=== PATIENT | male | born 1990 | race American Indian/Alaskan Native ===

== ENCOUNTER 2017-09-06 13:06 | Emergency (ER) | payer OTHER ==
[2017-09-06 13:19] VITALS: BP 117/87
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
== END 2017-09-06 16:29 | disposition home or self-care (01) ==
LOC: ED 13:06
DX: T85.698A Other mechanical complication of other specified internal prosthetic devices, implants and grafts, initial encounter (principal); Y83.8 Other surgical procedures as the cause of abnormal reaction of the patient, or of later complication, without mention of misadventure at the time of the procedure; Y92.89 Other specified places as the place of occurrence of the external cause
CPT/HCPCS: 99283

== ENCOUNTER 2018-01-26 09:08 | Outpatient (CLI) | payer OTHER ==
[2018-01-26 09:52] LABS: Blood Urea Nitrogen 9 mg/dL (9-20)
--- NOTE | 2018-01-26 12:03 | Cat Scan Report ---
CT scan of abdomen with IV contrast: History: Cramping and swelling. Findings: Left basilar scarring or discoid atelectasis. No pleural pericardial effusion. Normal liver spleen pancreas and gallbladder. Normal adrenals. There is scarring noted of the cortex of the left kidney. There is no perirenal edema or mass identified. Faint areas of calcification/tiny calculi noted in the left kidney. Large amount of stool in colon. No bowel distention. Appendix is not visualized. Impression: Scarring left kidney probably related to chronic pyelonephritis. Clinical correlation advised. Tiny calculi/calcification left kidney. Pelvis is not included in the study. Large amount of stool in colon.
== END 2018-01-26 09:09 | disposition home or self-care (01) ==
LOC: CT 09:08
PROVIDERS: ATTEND Family Medicine
DX: N20.0 Calculus of kidney (principal)
CPT/HCPCS: 36415; 74160; 82565; 84520; Q9967